=== PATIENT | female | born 1950 | race Caucasian/White ===

== ENCOUNTER → 2016-11-14 | Outpatient (CLI) | payer OTHER | LOC: CIMAGING 10:08 | PROVIDERS: ATTEND Internal Medicine | DX: Z12.31 Encounter for screening mammogram for malignant neoplasm of breast (principal) | CPT/HCPCS: G0202 ==

== ENCOUNTER → 2017-03-05 | Outpatient (CLI) | payer OTHER | LOC: CIMAGING 11:22 | PROVIDERS: ATTEND Internal Medicine | DX: R50.9 Fever, unspecified (principal); R05 Cough | CPT/HCPCS: 71020-PO; 80048-PO; 83605-PO; 85025-PO; 87804-QW-PO; G0463-PO ==

== ENCOUNTER 2017-08-23 11:32 | Emergency (ER) | payer OTHER ==
[2017-08-23 11:44] VITALS: BP 136/88
--- NOTE | 2017-08-23 11:54 | EDPHY ---
H & P Time Seen by Provider: 08/23/17 11:36 HPI/ROS: 67-year-old female presents complaining of returned from [place] last night and this morning removed a tick from her left inner thigh. There is a small area of redness where she removed the tick. She is otherwise feeling well. No fevers no chills no joint pain Review of systems As per HPI General no fever no chills no weakness HEENT no eye pain no eye discharge. No eye redness, no sore throat Respiratory no cough, no shortness of breath Cardiac no chest pain, no peripheral edema GI no abdominal pain, no diarrhea, no constipation, no nausea, no vomiting no flank pain, no hematuria, no dysuria Musculoskeletal no myalgias, no joint pain Heme no easy bruising, no easy bleeding Endo no polyuria, no polydipsia Skin pos rashes, no pruritus Neuro no syncope, no dizziness, no headaches Psych is no suicidal ideation, no homicidal ideation Past Medical/Surgical History: hypothyroidism Social History: Denies alcohol or drug use Smoking Status: Former smoker Physical Exam: 67-year-old female alert and oriented no acute distress nontoxic appearance , afebrile Atraumatic normocephalic Neck no JVD Lungs clear to auscultation, no respiratory distress Heart regular rate and rhythm Extremities no cyanosis clubbing edema Left inner thigh with a approximately 8 mm round erythematous, flat, indurated area Non fluctuant, no bull's eye Constitutional: Initial Vital Signs Temperature (C) 36.8 C 08/23/17 11:37 Heart Rate 64 08/23/17 11:37 Respiratory Rate 16 08/23/17 11:37 Blood Pressure 136/88 H 08/23/17 11:37 O2 Sat (%) 95 08/23/17 11:37 O2 Delivery Mode Room Air Allergies/Adverse Reactions: soy Allergy (Verified 08/23/17 11:37) legumes Allergy (Intermediate, Uncoded 08/23/17 11:36) Vomiting Home Medications: Medication Instructions Recorded Atenolol 08/23/17 Doxycycline Hyclate [Vibramycin 100 mg PO BID 20 Days #40 cap 08/23/17 100 MG (*)] Levothyroxine 08/23/17 Medical Decision Making ED Course/Re-evaluation: Patient seen and evaluated for tick bite Small area of erythema at site of tick bite Impression Tick bite Plan Lyme disease prophylaxis given tick was likely from [place] Doxycycline 200 mg p.o. Follow-up with PCP Differential Diagnosis: Differential diagnosis considered but not limited to: Tick bite, papule, pustule, other insect bite - Data Points Medications Given: Discontinued Medications Doxycycline Hyclate (Vibramycin 100 Mg Prepack#2) 1 btl TAKEHOME EDNOW ONE Stop: 08/23/17 12:01 Last Admin: 08/23/17 12:07 Dose: 1 btl Departure - Departure Disposition: Home, Routine, Self-Care Clinical Impression: Tick bite of left thigh Condition: Good Instructions: Doxycycline (By mouth), Tick Bite (ED) Referrals: Michaela Moon MD [Primary Care Provider] - As per Instructions Prescriptions: Doxycycline Hyclate [Vibramycin 100 MG (*)] 100 mg PO BID 20 Days #40 cap
[2017-08-23] MEDS ORDERED: DOXYCYCLINE 100 MG PREPACK#2 BTL TAKEHOME ONE (12:00)
== END 2017-08-23 12:05 | disposition home or self-care (01) ==
LOC: CED 11:32
DX: S70.362A Insect bite (nonvenomous), left thigh, initial encounter (principal); Z87.891 Personal history of nicotine dependence; W57.XXXA Bitten or stung by nonvenomous insect and other nonvenomous arthropods, initial encounter

== ENCOUNTER → 2017-11-17 | Outpatient (CLI) | payer OTHER | LOC: CIMAGING 10:15 | PROVIDERS: ATTEND Internal Medicine | DX: Z12.31 Encounter for screening mammogram for malignant neoplasm of breast (principal); Z80.3 Family history of malignant neoplasm of breast ==

== ENCOUNTER → 2017-12-04 | Outpatient (CLI) | payer OTHER | LOC: CIMAGING 13:04 | PROVIDERS: ATTEND Internal Medicine | DX: R92.8 Other abnormal and inconclusive findings on diagnostic imaging of breast (principal) ==